=== PATIENT | female | born 1935 | race Caucasian/White ===

== ENCOUNTER 2016-12-06 18:57 | Inpatient (IN) | payer OTHER ==
[~2016-12-06] VITALS: Ht 149.9 cm; Wt 65.5 kg
[~2016-12-06 18:57] MED LIST: ACIPHEX20 MG PO; ANTIBIOTIC; APLISOL5 TUB UNIT ID; BONIVA150 MG PO; CALCIUM 600 +1 EAC1 PO; CALCIUM 600 +1 EAC3 PO; CALCIUM 600 +1 EAC7 PO; CELEBREX200 MG PO; CELECOXIB200 MG PO; Cozaar PO; DILAUDID2 MG PO; DIPHENHYDRAMINE50 M1 PO; DULCOLAX10 MG PR; ENEMA133 M2 PR; FLEXERIL10 MG PO; Feosol PO; HYDROCHLOROTH12.5 M2 PO; HYDROCHLOROTHIA25 MG PO; HYDROCODON-ACE1 EAC7 PO; LASIX40 MG PO; LIBRAX, CLI1 CAPSULE PO; LIPITOR20 MG PO; LISINOPRIL5 MG PO; LOVENOX30 MG/0.3 SC; LYRICA75 MG PO; Lovenox SC; MILK OF MAGN PO; MUCINEX COLD &177 ML PO; MULTIVITAMIN1 EAC2 PO; NITROFURANTOIN100 MG PO; NORCO 5/3251 TABLET PO; PAXIL20 MG PO; SENEXON8.6 MG PO; Senokot,Sennagen PO; TOPROL XL50 MG PO; TRAMADOL HCL50 MG PO; TYLENOL REGULA325 MG PO; ULTRAM50 MG PO; ZANTAC150 MG PO; ZOFRAN4 MG PO; ZZZQUIL50 MG/30 M PO; vesicare
[2016-12-06 20:21] LABS: MCH 29.8 PG (29.0-34.0); MCHC 32.2 G/DL (30.0-36.0); MCV 92.7 FL (83-99); MEAN PLAT.VOLUME 9.7 uM^3 (9.5-12.4); PLATELET COUNT 401 K/uL (156-360); RBC DIS.WIDTH-CV 14.2 % (11.8-14.6); RBC DIS.WIDTH-SD 46.8 % (39-53); RED BLOOD COUNT 3.99 M/uL (3.80-5.20); WHITE BLOOD COUNT 14.8 K/uL (4.1-10.2)
[2016-12-06 20:30] LABS: CHLORIDE 102 mEq/L (99-109); POTASSIUM 4.9 mEq/L (3.7-5.4); SODIUM 137 mEq/L (136-147)
[2016-12-06 20:32] LABS: GLUCOSE 133 mg/dL (70-99)
[2016-12-06 20:33] LABS: ANION GAP 11 MEQ/L (2-14)
[2016-12-06 20:36] LABS: GFR ESTIMATE (CALCULATED) 56 mL/min/
[2016-12-06 20:37] LABS: UREA NITROGEN (BUN) 22 mg/dL (9-23)
[2016-12-06] MEDS ORDERED: CALCIUM 600 +1 EAC4 PO (22:06)
[2016-12-06] MEDS ORDERED: LORATADINE10 M2 PO (22:07)
[2016-12-06] MEDS ORDERED: MELATIN3 MG PO (22:07)
[2016-12-06] MEDS ORDERED: TOPROL XL25 MG PO (22:09)
[2016-12-06] MEDS ORDERED: METOPROLOL SUCC50 MG PO (22:10)
[2016-12-06] MEDS ORDERED: PAXIL30 MG PO (22:11)
[2016-12-06] MEDS ORDERED: TRAZODONE HCL50 MG PO (22:13)
[2016-12-06] MEDS ORDERED: ELIQUIS2.5 MG PO (22:13)
[2016-12-06] MEDS ORDERED: ACETAMINOPHEN325 M1 PO (22:17)
[2016-12-06] MEDS ORDERED: MIRALAX17 GM PO (22:21)
[2016-12-06 23:34] LABS: TROP-I INTERPRETATION NEGATIVE; TROPONIN-I < 0.01 ng/mL (0.0-0.30)
[2016-12-06 23:50] VITALS: BP 165/75
[2016-12-07 04:18] VITALS: BP 144/72
[2016-12-07 06:53] LABS: HEMATOCRIT 33.2 % (36.0-46.0); MCH 29.9 PG (29.0-34.0); MCHC 32.5 G/DL (30.0-36.0); PLATELET COUNT 365 K/uL (156-360); RBC DIS.WIDTH-CV 14.3 % (11.8-14.6); RBC DIS.WIDTH-SD 48.6 % (39-53); RED BLOOD COUNT 3.61 M/uL (3.80-5.20); WHITE BLOOD COUNT 13.3 K/uL (4.1-10.2)
[2016-12-07 07:17] LABS: ANION GAP 8 MEQ/L (2-14); CHLORIDE 101 MEQ/L (99-109); GFR ESTIMATE (CALCULATED) > 59 mL/min/; GLUCOSE 130 mg/dL (70-99); POTASSIUM 4.7 MEQ/L (3.7-5.4); SAMPLE HEMOLYSIS CHECK 0; SAMPLE ICTERIC CHECK 0; SAMPLE LIPEMIA CHECK 0; SODIUM 135 MEQ/L (136-147); UREA NITROGEN (BUN) 18 mg/dL (9-23)
[2016-12-07 07:55] VITALS: BP 141/91
[2016-12-07 11:49] VITALS: BP 134/85
[2016-12-07 15:15] VITALS: BP 127/84
[2016-12-07 19:19] VITALS: BP 163/78
[2016-12-07 23:53] VITALS: BP 129/92
[2016-12-08 04:13] VITALS: BP 144/68
[2016-12-08 05:35] LABS: EOSINOPHIL (%) 2.2 % (0-5); EOSINOPHIL COUNT 0.3 K/uL (0-0.3); HEMATOCRIT 35.5 % (36.0-46.0); IMMATURE GRANULOCYTE (%) 0.2 % (0.0-0.7); LYMPHOCYTE COUNT 1.4 K/uL (1.0-2.8); MCH 29.4 PG (29.0-34.0); MCHC 31.8 G/DL (30.0-36.0); MCV 92.2 FL (83-99); MEAN PLAT.VOLUME 10.2 uM^3 (9.5-12.4); MONOCYTE (%) 11.2 % (3-12); MONOCYTE COUNT 1.4 K/uL (0-0.8); NEUTROPHIL (%) 75.2 % (45-76); NEUTROPHIL COUNT 9.6 K/uL (1.8-6.4); PLATELET COUNT 333 K/uL (156-360); RBC DIS.WIDTH-CV 14.3 % (11.8-14.6); RBC DIS.WIDTH-SD 48.8 % (39-53); RED BLOOD COUNT 3.85 M/uL (3.80-5.20); WHITE BLOOD COUNT 12.8 K/uL (4.1-10.2)
[2016-12-08 06:04] LABS: ANION GAP 9 MEQ/L (2-14); CHLORIDE 99 MEQ/L (99-109); GFR ESTIMATE (CALCULATED) > 59 mL/min/; GLUCOSE 133 mg/dL (70-99); POTASSIUM 4.9 MEQ/L (3.7-5.4); SAMPLE HEMOLYSIS CHECK 0; SAMPLE ICTERIC CHECK 0; SAMPLE LIPEMIA CHECK 0; SODIUM 135 MEQ/L (136-147); UREA NITROGEN (BUN) 12 mg/dL (9-23)
[2016-12-08 07:30] VITALS: BP 159/79
[2016-12-08 11:09] LABS: HEMATOCRIT 31.8 % (36.0-46.0); MCH 29.9 PG (29.0-34.0); MCHC 32.1 G/DL (30.0-36.0); MCV 93.3 FL (83-99); MEAN PLAT.VOLUME 10.1 uM^3 (9.5-12.4); PLATELET COUNT 272 K/uL (156-360); RBC DIS.WIDTH-CV 14.3 % (11.8-14.6); RBC DIS.WIDTH-SD 48.9 % (39-53); RED BLOOD COUNT 3.41 M/uL (3.80-5.20); WHITE BLOOD COUNT 15.9 K/uL (4.1-10.2)
[2016-12-08 13:37] VITALS: BP 120/60
[2016-12-08 16:20] VITALS: BP 141/72
[2016-12-09 00:20] VITALS: BP 128/77
[2016-12-09 06:14] LABS: HEMATOCRIT 29.8 % (36.0-46.0); MCV 90.9 FL (83-99)
[2016-12-09 07:45] VITALS: BP 125/70
[2016-12-09 15:52] VITALS: BP 133/76
[2016-12-09 23:34] VITALS: BP 107/59
[2016-12-10 05:39] LABS: HEMATOCRIT 32.1 % (36.0-46.0); MCV 91.7 FL (83-99)
[2016-12-10 08:13] VITALS: BP 136/75
[2016-12-10 12:11] VITALS: BP 131/66
[2016-12-10] MEDS ORDERED: BENADRYL25 MG PO (12:33)
[2016-12-10] MEDS ORDERED: LOVENOX40 MG/0.4 SC (12:34)
[2016-12-10] MEDS ORDERED: LIDOCAINE700 MG TD (12:35)
[2016-12-10] MEDS ORDERED: HYDROMORPHONE HC2 MG PO (12:36)
[2016-12-10] MEDS ORDERED: TRAMADOL HCL50 MG PO (12:36)
[2016-12-10 16:19] VITALS: BP 118/64
[2016-12-10 23:34] VITALS: BP 104/58
[2016-12-11 08:17] VITALS: BP 120/61
[2016-12-11 17:11] VITALS: BP 122/61
== END 2016-12-11 19:19 | DRG 470 ==
LOC: EME → EDBD 18:57 → EME 18:57 → EDOF 22:23 → 3EAST 22:23
PROVIDERS: Emergency Medicine; Family Medicine; Hospitalist; Orthopaedic Surgery
PROC: 0SRR0JZ Replacement of Right Hip Joint, Femoral Surface with Synthetic Substitute, Open Approach (ICD-10-PCS; principal; 2016-12-08)
DX: S72.011A Unspecified intracapsular fracture of right femur, initial encounter for closed fracture (principal); F33.9 Major depressive disorder, recurrent, unspecified; D64.9 Anemia, unspecified; I45.10 Unspecified right bundle-branch block; I10 Essential (primary) hypertension; E78.5 Hyperlipidemia, unspecified; J45.909 Unspecified asthma, uncomplicated; D72.829 Elevated white blood cell count, unspecified; Y92.121 Bathroom in nursing home as the place of occurrence of the external cause; Z87.11 Personal history of peptic ulcer disease; Z98.1 Arthrodesis status; R29.6 Repeated falls; Z87.81 Personal history of (healed) traumatic fracture; W01.0XXA Fall on same level from slipping, tripping and stumbling without subsequent striking against object, initial encounter; R01.1 Cardiac murmur, unspecified; K59.00 Constipation, unspecified
CPT/HCPCS: 71010; 73501; 73502; 80048; 81003; 84484; 85014; 85018; 85025; 85027; 86850; 86900; 86901; 93005; 93306; 94799; 97530 GO; 97530 GP; 99281; 99284; J0690; J1650; J2270; J2405; J3010